=== PATIENT | male | born 1990 | race African-American/Black ===

== ENCOUNTER 2025-11-06 19:50 | Emergency (ER) | payer BC, MEDICAID | END 2025-11-06 21:01 | disposition left against medical advice (07) | LOC: ER 20:10 | DX: K62.5 Hemorrhage of anus and rectum (principal); Z53.21 Procedure and treatment not carried out due to patient leaving prior to being seen by health care provider ==

== ENCOUNTER 2025-11-06 21:37 | Emergency (ER) | payer BC, MEDICAID ==
[~2025-11-06] VITALS: Ht 170.2 cm; Wt 77.1 kg
[2025-11-06 22:38] LABS: APPEARANCE,URINE CLEAR (CLEAR); BLOOD, URINE NEGATIVE Ery/uL (NEGATIVE); LEUKOCYTE ESTERASE ,URINE NEGATIVE (NEGATIVE); NITRITE, URINE NEGATIVE (NEGATIVE); UGLUCOSE NEGATIVE (NEGATIVE)
[2025-11-06 22:42] LABS: PLATELET COUNT (AUTO) 399 K/uL (150-450); RED BLOOD CELL COUNT(AUTO) 4.42 MIL/uL (4.5-6.0); RED CELL DISTRIBUTION WIDTH 15.1 % (11.5-15.0); WHITE BLOOD COUNT (AUTO) 8.3 K/uL (4.3-11.0)
[2025-11-06 22:47] LABS: CALCIUM, SERUM 8.8 mg/dL (8.5-10.1); CREATININE 1.1 mg/dL (0.6-1.3); SODIUM SERUM 140.0 mmol/L (136-145); UREA NITROGEN, BLOOD 17.0 mg/dL (7-18)
[2025-11-06 22:53] LABS: ASPARTATE AMINOTRANSFERASE 35.0 U/L (15-37); TOTAL PROTEIN, SERUM 7.3 g/dL (6.4-8.2)
[2025-11-06] MEDS ORDERED: IOHEXOL-300 100 ML VIAL IV ONE (23:24)
[2025-11-06] MEDS ORDERED: CT SWABBABLE VALVE TRANS SET 1 EA INFUS.SET MC ONE (23:24)
[2025-11-06] MEDS ORDERED: IV NS 0.9% 250 ML IV ONE (23:24)
[2025-11-06] MEDS: IV LR 1000 ML 1,000 ML IV ONE (23:52)
[2025-11-06] MEDS ORDERED: LIDOCAINE VISCOUS 2% UD 15 ML UDC ONE (23:53)
[2025-11-06] MEDS ORDERED: MAG HYDROX/AL HYDROX/SIMETH 30 ML UDC ONE (23:53)
[2025-11-06] MEDS ORDERED: FAMOTIDINE/PF INJ 20 MG/2 ML VIAL IV ONE (23:54)
[2025-11-06] MEDS: LIDOCAINE VISCOUS 2% UD 15 ML UDC MM ONE (23:58)
[2025-11-06] MEDS: MAG HYDROX/AL HYDROX/SIMETH 30 ML UDC PO ONE (23:58)
[2025-11-06] MEDS: FAMOTIDINE/PF INJ 20 MG/2 ML VIAL IV ONE (23:58)
[2025-11-07 01:04] VITALS: BP 127/68; TEMP 98.4; O2SAT 99
== END 2025-11-07 01:06 | disposition home or self-care (01) ==
LOC: ER 21:41
DX: K60.2 Anal fissure, unspecified (principal); R10.11 Right upper quadrant pain
CPT/HCPCS: 99285; 74177; 96374; 96361; 85025; 80048; 83690; 80076; 81003; 36415; J1308; J7120; J7050; Q9967